=== PATIENT | female | born 2000 | race African-American/Black ===

== ENCOUNTER 2020-11-04 10:00 | Emergency (ER) | payer OTHER ==
[~2020-11-04] VITALS: Ht 152.4 cm; Wt 72.6 kg
[2020-11-04 10:47] VITALS: BP 122/73
== END 2020-11-04 12:34 | disposition home or self-care (01) ==
LOC: ER 10:00
DX: S46.911A Strain of unspecified muscle, fascia and tendon at shoulder and upper arm level, right arm, initial encounter (principal); X58.XXXA Exposure to other specified factors, initial encounter; Y93.89 Activity, other specified; Y92.89 Other specified places as the place of occurrence of the external cause; Y99.8 Other external cause status